=== PATIENT | female | born 1975 | race Hispanic/Latino ===

== ENCOUNTER → 2023-10-23 | Outpatient (CLI) | payer SELFPAY ==
[2023-10-23 12:37] LABS: INR 2.79 (0.85-1.15); PROTHROMBIN TIME 30.5 SEC (9.6-11.6)
== END | disposition home or self-care (01) ==
LOC: LAB 11:13
PROVIDERS: ATTEND Internal Medicine Cardiovascular Disease
DX: Z79.01 Long term (current) use of anticoagulants (principal)
CPT/HCPCS: 36415; 85610